=== PATIENT | female | born 1955 | race Caucasian/White ===

== ENCOUNTER 2024-01-01 17:14 | Emergency (ER) | payer MEDICARE ==
[~2024-01-01 17:14] MED LIST: Iopamidol 370 76% 100 ML VIAL ONE; Sodium Chloride 0.9% 100 ML BAG ONE
[2024-01-01 18:06] LABS: INR-International Normal Ratio 1.2; PTT 34.4 sec (22.9-36.1); Prothrombin Time 14.9 sec (12.0-14.7)
[2024-01-01 18:13] LABS: ALT (SGPT) 11 U/L (8-55); AST (SGOT) 28 U/L (5-34); Albumin 3.7 g/dL (3.4-4.8); Alkaline Phosphatase 159 U/L (40-110); Anion Gap 18 mmol/L (10-20); BUN (Urea Nitrogen) 48 mg/dL (9.8-20.1); Bilirubin, Total 0.4 mg/dL (0.2-1.2); Calc. Creatinine Clearance 0 mL/min (70-130); Carbon Dioxide 14 mmol/L (23-31); Chloride 106 mmol/L (98-107); Estimated GFR 17; Globulin 2.7 g/dL (2.4-3.5); Glucose 133 mg/dL (80-115); Potassium 4.9 mmol/L (3.5-5.1); Protein, Total 6.4 g/dL (5.8-8.1); Sodium 133 mmol/L (136-145)
[2024-01-01 18:14] LABS: Troponin I Less than 0.010 ng/mL (< 0.028)
[2024-01-01 18:18] LABS: Anisocytosis SLIGHT = 6-15 cells (100X) (0-5/hpf); Band 17 % (5-11); Eosinophils 2 % (0-10); Hematocrit 21.7 % (36.0-47.0); Hemoglobin 7.5 g/dL (12.0-16.0); Hypochromia SLIGHT = 6-15 cells (100X) (0-5/hpf); Lymphocytes 10 % (21-51); MDiff Complete? YES; Mean Corpuscular HGB CONC 34.7 g/dL (32.0-36.0); Mean Corpuscular Hemoglobin 32.6 pg (27.0-31.0); Mean Platelet Volume 6.6 fL (7.4-10.4); Monocytes 8 % (0-10); Neutrophil 63 % (42-75); Platelet Adequacy Comment Appears Adequate; Platelet Count 136 10x3/uL (130-400); RBC Distribution Width 12.3 % (11.5-14.5); Red Blood Cell (RBC) Count 2.31 mill/uL (4.20-5.40); White Blood Cell (WBC) Count 12.2 10x3/uL (4.8-10.8)
[2024-01-01 18:25] LABS: Bilirubin Negative (Negative); Blood, Urine Trace (Negative); Clarity Slightly Cloudy (Clear); Glucose, Urine (Dipstick) Negative (Negative); Ketone, Urine Negative (Negative); Leukocyte Small (Negative); Nitrite Negative (Negative); Protein, Urine (Dipstick) > or equal to 300 mg/dL (Neg-Trace); Urobilinogen 0.2 mg/dL (Less than 2); pH, Urine 7.5 (5.0-9.0)
[2024-01-01 18:26] LABS: Bacteria/HPF 1+ HPF (None Seen); CAUTI Indications for Culture Dysuria,urgency,freq; Squamous Epithelial 0-3 HPF (0-3); WBC/HPF 21-50 HPF (0-3)
[2024-01-01 18:28] LABS: Urine Culture Reflex Yes Yes
[2024-01-01] MEDS ORDERED: Vancomycin 1 GM VIAL ONE (18:38)
[2024-01-01] MEDS ORDERED: Acetaminophen 325 MG TAB ONE (18:38)
[2024-01-01] MEDS ORDERED: Cefepime 2 GM VIAL ONE (18:38)
[2024-01-01] MEDS ORDERED: Lactated Ringer's 1,000 ML ONE (18:39)
[2024-01-01] MEDS ORDERED: Sodium Chloride 0.9% 250 ML 250 ML ONE (18:39)
[2024-01-01] MEDS ORDERED: Ondansetron PF 4 MG/2 ML Vial ONE (19:36)
[2024-01-01] MEDS ORDERED: Furosemide 40 MG (4 mL) VIAL ONE (20:26)
[2024-01-01 20:36] LABS: Base Excess-Venous -8.8 mmol/L (-2.0 to 3.0); Bicarbonate (HCO3v) 15.7 mmol/L (22.0-28.0); CO2 Tension (PvCO2) 27.7 mmHg (42.0-51.0); Calcium, Ionized 1.03 mmol/L (1.15-1.33); Chloride 106 mmol/L (98-107); Hemoglobin - Calc 7.2 g/dL (12.0-16.0); Potassium 4.8 mmol/L (3.5-5.1); Sodium 130 mmol/L (138-145); T. Carbon Dioxide 16.6 mmol/L (22.0-28.0); vO2 Saturation-calc 99.5 % (60.0-85.0)
== END 2024-01-01 20:44 | disposition short-term general hospital (02) ==
LOC: MADERS 17:14
DX: A41.9 Sepsis, unspecified organism (principal); D64.9 Anemia, unspecified; R82.71 Bacteriuria; G93.40 Encephalopathy, unspecified; R09.02 Hypoxemia; G89.18 Other acute postprocedural pain; M54.50 Low back pain, unspecified; J81.1 Chronic pulmonary edema; I13.0 Hypertensive heart and chronic kidney disease with heart failure and stage 1 through stage 4 chronic kidney disease, or unspecified chronic kidney disease; E11.22 Type 2 diabetes mellitus with diabetic chronic kidney disease; N18.9 Chronic kidney disease, unspecified; I50.9 Heart failure, unspecified; Z96.651 Presence of right artificial knee joint
CPT/HCPCS: 0042T; 36415; 51701; 51702; 70450; 71045; 80053; 81001; 82330; 82803; 83605; 83880; 84484; 85025; 85610; 85730; 87086; 87400; 87426; 93005; 94760; 96365; 96368; 96375; J0692; J1940; J2405; J3370; J7050; J7120; Q9967

== ENCOUNTER 2024-05-01 12:14 | Emergency (ER) | payer MEDICARE ==
[2024-05-01] MEDS ORDERED: Albuterol 2.5 MG (3 mL) NEB ONE (12:27)
[2024-05-01] MEDS ORDERED: Sodium Chloride 0.9% 100 ML ONE (12:27)
[2024-05-01] MEDS ORDERED: Cefepime 2 GM VIAL ONE (12:27)
[2024-05-01] MEDS ORDERED: Sodium Chloride 0.9% 500 ML ONE (12:27)
[2024-05-01 12:49] LABS: #Basophils 0.1 thou/uL (0.0-0.2); #Lymphocytes 1.3 thou/uL (1.20-3.40); #Monocytes 0.5 thou/uL (0.11-0.59); #Neutrophils 10.5 thou/uL (1.40-6.50); %Basophils 0.5 % (0.0-1.0); %Eosinophils 0.2 % (0.0-10.0); %Lymphocytes 10.3 % (21.0-51.0); %Monocytes 4.1 % (0.0-10.0); %Neutrophils 84.8 % (42.0-75.0); Mean Corpuscular HGB CONC 33.5 g/dL (32.0-36.0); Mean Corpuscular Hemoglobin 31.5 pg (27.0-31.0); Mean Corpuscular Volume 93.9 fl (78.0-98.0); Mean Platelet Volume 7.4 fL (7.4-10.4); Platelet Count 146 10x3/uL (130-400); RBC Distribution Width 12.5 % (11.5-14.5); Red Blood Cell (RBC) Count 2.55 mill/uL (4.20-5.40); White Blood Cell (WBC) Count 12.4 10x3/uL (4.8-10.8)
[2024-05-01 12:56] LABS: Base Excess-Venous -9.3 mmol/L (-2.0 to 3.0); Bicarbonate (HCO3v) 17.8 mmol/L (22.0-28.0); CO2 Tension (PvCO2) 43.7 mmHg (42.0-51.0); Calcium, Ionized 1.17 mmol/L (1.15-1.33); Chloride 113 mmol/L (98-107); Hemoglobin - Calc 8.3 g/dL (12.0-16.0); Potassium 5.4 mmol/L (3.5-5.1); Sodium 139 mmol/L (138-145); T. Carbon Dioxide 19.2 mmol/L (22.0-28.0); vO2 Saturation-calc 96.8 % (60.0-85.0)
[2024-05-01 12:59] LABS: Troponin I 0.021 ng/mL (< 0.028)
[2024-05-01 13:00] LABS: ALT (SGPT) 24 U/L (Less than 34); AST (SGOT) 28 U/L (11-34); Albumin 3.8 g/dL (3.1-4.5); Alkaline Phosphatase 125 U/L (40-110); Anion Gap 19 mmol/L (10-20); BUN (Urea Nitrogen) 86 mg/dL (9.8-20.1); Bilirubin, Total 0.6 mg/dL (0.3-1.2); CK (CPK) 71 U/L (29-168); Calc. Creatinine Clearance 0 mL/min (70-130); Carbon Dioxide 13 mmol/L (23-31); Chloride 111 mmol/L (98-107); Estimated GFR 14; Globulin 2.9 g/dL (2.4-3.5); Glucose 260 mg/dL (80-115); Lipase 25 U/L (8-78); Magnesium 2.7 mg/dL (1.6-2.6); Potassium 5.2 mmol/L (3.5-5.1); Protein, Total 6.7 g/dL (5.8-8.1); Sodium 138 mmol/L (136-145)
[2024-05-01] MEDS ORDERED: Vancomycin 1 GM VIAL ONE (13:32)
[2024-05-01] MEDS ORDERED: Vancomycin HCl 500 MG VIAL ONE (13:32)
== END 2024-05-01 14:18 | disposition short-term general hospital (02) ==
LOC: MADERS 12:14
DX: J90 Pleural effusion, not elsewhere classified (principal); J06.9 Acute upper respiratory infection, unspecified; I13.2 Hypertensive heart and chronic kidney disease with heart failure and with stage 5 chronic kidney disease, or end stage renal disease; I50.9 Heart failure, unspecified; N18.9 Chronic kidney disease, unspecified; E11.22 Type 2 diabetes mellitus with diabetic chronic kidney disease; E11.40 Type 2 diabetes mellitus with diabetic neuropathy, unspecified; Z79.4 Long term (current) use of insulin
CPT/HCPCS: 71045; 80053; 82330; 82435; 82550; 82803; 83605; 83690; 83735; 83880; 84132; 84295; 84484; 85014; 85025; 87040; 87149; 87428; 93005; 94760; 96365; 96367; J0692; J3370; J7030; J7611

== ENCOUNTER 2024-10-04 10:24 | Outpatient (CLI) | payer BC, MEDICARE ==
[2024-10-04 10:51] LABS: Hematocrit 26.1 % (36.0-47.0); Hemoglobin 8.6 g/dL (12.0-16.0); Mean Corpuscular Hemoglobin 32.0 pg (27.0-31.0); Mean Corpuscular Volume 97.4 fl (78.0-98.0); Platelet Count 121 10x3/uL (130-400); Red Blood Cell (RBC) Count 2.68 mill/uL (4.20-5.40); White Blood Cell (WBC) Count 5.2 10x3/uL (4.8-10.8)
[2024-10-04 10:57] LABS: Glucose, Urine (Dipstick) Negative (Negative); Leukocyte Small (Negative); Protein, Urine (Dipstick) > or equal to 300 mg/dL (Neg-Trace); Specific Gravity, Urine 1.020 (1.005-1.030)
[2024-10-04 11:14] LABS: ALT (SGPT) 7 U/L (Less than 34); AST (SGOT) 17 U/L (11-34); Albumin 4.1 g/dL (3.1-4.5); Alkaline Phosphatase 104 U/L (40-110); Anion Gap 15 mmol/L (10-20); BUN (Urea Nitrogen) 49 mg/dL (9.8-20.1); BUN/Creatinine Ratio 14.85; Bilirubin, Direct 0.2 mg/dL (0.1-0.3); Bilirubin, Total 0.6 mg/dL (0.3-1.2); Calc. Creatinine Clearance 0 mL/min (70-130); Calcium 8.6 mg/dL (7.8-10.44); Carbon Dioxide 23 mmol/L (23-31); Cardiac Risk 3.0 (Less than 4.5); Chloride 110 mmol/L (98-107); Cholesterol 133 mg/dl (< 200 Desired); Glucose 103 mg/dL (80-115); HDL Cholesterol 44 mg/dL (>60 Neg Risk); LDL Cholesterol, Calculated 76 mg/dL; Potassium 5.0 mmol/L (3.5-5.1); Sodium 143 mmol/L (136-145); Triglycerides 64 mg/dL (Less than 150); Uric Acid 8.5 mg/dL (2.5-6.2)
[2024-10-04 18:01] LABS: Protein, Urine Random Quant 167.0 mg/dL (1-14)
== END 2024-10-04 10:25 | disposition home or self-care (01) ==
LOC: MADLAB 10:24
PROVIDERS: ATTEND Internal Medicine Nephrology
DX: I12.9 Hypertensive chronic kidney disease with stage 1 through stage 4 chronic kidney disease, or unspecified chronic kidney disease (principal); E11.22 Type 2 diabetes mellitus with diabetic chronic kidney disease; N18.4 Chronic kidney disease, stage 4 (severe); K57.90 Diverticulosis of intestine, part unspecified, without perforation or abscess without bleeding; I25.10 Atherosclerotic heart disease of native coronary artery without angina pectoris; N20.0 Calculus of kidney; R30.1 Vesical tenesmus; R80.9 Proteinuria, unspecified; M19.90 Unspecified osteoarthritis, unspecified site
CPT/HCPCS: 36415; 80061; 80069; 80076; 81003; 82306; 82570; 83970; 84156; 84443; 84550; 85027

== ENCOUNTER 2024-10-04 10:42 | Emergency (ER) | payer BC, MEDICARE ==
[2024-10-04] MEDS ORDERED: Fluorescein Opthalmic Strip ONE (11:00)
[2024-10-04] MEDS ORDERED: Proparacaine 0.5% Opth 15 ML BOT ONE (11:00)
[2024-10-04] MEDS ORDERED: Ibuprofen 600 MG TAB ONE (11:12)
== END 2024-10-04 11:32 | disposition home or self-care (01) ==
LOC: MADERS 10:42
DX: S05.02XA Injury of conjunctiva and corneal abrasion without foreign body, left eye, initial encounter (principal); E78.5 Hyperlipidemia, unspecified; I13.0 Hypertensive heart and chronic kidney disease with heart failure and stage 1 through stage 4 chronic kidney disease, or unspecified chronic kidney disease; E11.22 Type 2 diabetes mellitus with diabetic chronic kidney disease; N18.9 Chronic kidney disease, unspecified; I50.9 Heart failure, unspecified; W61.33XA Pecked by chicken, initial encounter
CPT/HCPCS: 36415; 80061; 80069; 80076; 81003; 82306; 82570; 83970; 84156; 84443; 84550; 85027; 99283

== ENCOUNTER 2025-02-05 09:58 | Outpatient (CLI) | payer MEDICARE ==
[2025-02-05 10:41] LABS: Hematocrit 27.9 % (36.0-47.0); Hemoglobin 9.5 g/dL (12.0-16.0); Mean Corpuscular Hemoglobin 31.5 pg (27.0-31.0); Mean Corpuscular Volume 92.8 fl (78.0-98.0); Platelet Count 113 10x3/uL (130-400); Red Blood Cell (RBC) Count 3.01 mill/uL (4.20-5.40); White Blood Cell (WBC) Count 6.3 10x3/uL (4.8-10.8)
[2025-02-05 10:42] LABS: Glucose, Urine (Dipstick) 100 mg/dL (Negative); Leukocyte Trace (Negative); Protein, Urine (Dipstick) > or equal to 300 mg/dL (Neg-Trace); Specific Gravity, Urine 1.020 (1.005-1.030)
[2025-02-05 10:46] LABS: ALT (SGPT) 10 U/L (Less than 34); AST (SGOT) 23 U/L (11-34); Albumin 3.9 g/dL (3.1-4.5); Alkaline Phosphatase 128 U/L (40-110); Anion Gap 16 mmol/L (10-20); BUN (Urea Nitrogen) 43 mg/dL (9.8-20.1); BUN/Creatinine Ratio 12.29; Bilirubin, Direct 0.3 mg/dL (0.1-0.3); Bilirubin, Total 0.7 mg/dL (0.3-1.2); Calc. Creatinine Clearance 0 mL/min (70-130); Calcium 8.4 mg/dL (7.8-10.44); Carbon Dioxide 18 mmol/L (23-31); Cardiac Risk 3.7 (Less than 4.5); Chloride 112 mmol/L (98-107); Cholesterol 167 mg/dl (< 200 Desired); Glucose 158 mg/dL (80-115); HDL Cholesterol 45 mg/dL (>60 Neg Risk); LDL Cholesterol, Calculated 99 mg/dL; Potassium 5.0 mmol/L (3.5-5.1); Sodium 141 mmol/L (136-145); Triglycerides 115 mg/dL (Less than 150); Uric Acid 6.6 mg/dL (2.5-6.2)
[2025-02-05 20:45] LABS: Protein, Urine Random Quant Greater than 2000 mg/dL (1-14)
== END 2025-02-05 09:59 | disposition home or self-care (01) ==
LOC: MADLAB 09:58
PROVIDERS: ATTEND Internal Medicine Nephrology
DX: I13.0 Hypertensive heart and chronic kidney disease with heart failure and stage 1 through stage 4 chronic kidney disease, or unspecified chronic kidney disease (principal); N18.4 Chronic kidney disease, stage 4 (severe); I50.9 Heart failure, unspecified; D63.1 Anemia in chronic kidney disease; M19.90 Unspecified osteoarthritis, unspecified site; C68.9 Malignant neoplasm of urinary organ, unspecified; N13.30 Unspecified hydronephrosis; N17.9 Acute kidney failure, unspecified; E87.1 Hypo-osmolality and hyponatremia; E13.10 Other specified diabetes mellitus with ketoacidosis without coma; G89.29 Other chronic pain; R06.02 Shortness of breath; Z79.899 Other long term (current) drug therapy; Z87.442 Personal history of urinary calculi
CPT/HCPCS: 36415; 80061; 80069; 80076; 81003; 82306; 82570; 84156; 84443; 84550; 85027